=== PATIENT | male | born 1960 | race Asian ===

== ENCOUNTER 2016-09-15 10:00 | Emergency (ER) | payer OTHER ==
[~2016-09-15] VITALS: Ht 157.5 cm; Wt 59.9 kg
[2016-09-15] MEDS ORDERED: IV NORMAL SALINE 1000ML BAG 1,000 ML IV SCH (12:23)
[2016-09-15 12:40] LABS: BASO # 0.1 x10^3/uL (0.0-0.2); BASO % 1 % (0-3); EOS % 1 % (0-3); HEMATOCRIT 39.1 % (39.0-53.0); HEMOGLOBIN 13.4 g/dL (13.0-17.5); LYMPH # 1.3 x10^3/uL (1.0-4.8); LYMPH % 15 % (24-48); MEAN CORPUSCULAR HEMOGLOBIN 31 pg (25-35); MEAN CORPUSCULAR HGB CONC 34 g/dL (31-37); MEAN CORPUSCULAR VOLUME 90 fL (79-100); MONO % 8 % (0-9); NEUT % 75 % (31-73); PLATELET COUNT 183 x10^3/uL (140-400); RED BLOOD COUNT 4.32 x10^6/uL (4.30-5.70); RED CELL DISTRIBUTION WIDTH 13.3 % (11.5-14.5); WHITE BLOOD COUNT 8.5 x10^3/uL (4.0-11.0)
[2016-09-15 12:48] LABS: CALCIUM 8.8 mg/dL (8.5-10.1); CREATININE 1.1 mg/dL (0.7-1.3); GFR 69.8; POTASSIUM 3.1 mmol/L (3.5-5.1)
--- NOTE | 2016-09-15 12:48 | RAD ---
EXAM: Head and cervical spine CT without contrast. HISTORY: Syncope. TECHNIQUE: Computed tomographic images of the head and cervical spine were obtained without contrast. One or more of the following individualized dose reduction techniques were utilized for this examination: 1. Automated exposure control. 2. Adjustment of the mA and/or kV according to patient size. 3. Use of iterative reconstruction technique. COMPARISON: None. FINDINGS: Head: There is no acute or subacute hemorrhage. There is no mass effect or midline shift. There is no hydrocephalus. There is a nonspecific calcification within the right frontal lobe cortex, possibly due to the sequela of remote infection. The orbits are unremarkable. There is moderate paranasal sinus mucosal thickening. The mastoid air cells are clear. No calvarial lesion is seen. Cervical spine: There is mild cervical kyphosis. There is no significant listhesis. There is degenerative endplate remodeling with osteophytosis of the majority of the cervical vertebral levels. There is no fracture. At C2-C3, there is a disc bulge and endplate remodeling. There is minimal left foraminal stenosis. At C3-C4, there is a left paracentral disc osteophyte complex super posterior disc bulge and endplate remodeling. There is mild left foraminal stenosis. There is mild central canal stenosis. At C4-C5, there is a left paracentral to foraminal disc osteophyte complex and both on a disc bulge and endplate remodeling. There is left uncovertebral arthropathy. There is moderate left foraminal stenosis. There is mild central canal stenosis. At C5-C6, there is a left paracentral to foraminal disc osteophyte complex superimposed on a disc bulge and endplate remodeling. There is bilateral uncovertebral arthropathy. There is moderate bilateral foraminal stenosis. There is mild central canal stenosis. At C6-C7, there is a posterior central to right paracentral disc osteophyte complex are both in a disc bulge and endplate remodeling. There is a right uncovertebral arthropathy. There is moderate to severe right and moderate left foraminal stenosis. IMPRESSION: 1. No acute intracranial finding or evidence of acute cervical spine trauma. 2. Multilevel degenerative change throughout the cervical spine, resulting in stenosis as described above.
[2016-09-15 12:54] LABS: ALBUMIN 2.7 g/dL (3.4-5.0); ALBUMIN/GLOBULIN RATIO 0.6 (1.0-1.7); TOTAL BILIRUBIN 0.8 mg/dL (0.2-1.0); TOTAL PROTEIN 7.1 g/dL (6.4-8.2)
--- NOTE | 2016-09-15 13:13 | RAD ---
Exam: PA and lateral chest radiograph History: Fever for one week, syncope. Comparison: None. Findings: Cardiomediastinal silhouette is within normal limits for size. Bilateral lung pierson are free of focal infiltrate. No pleural effusion is seen. Aortic atherosclerosis is seen. Impression: No acute cardiopulmonary process.
--- NOTE | 2016-09-15 13:22 | PHYS DOC ---
Past Medical History Past Medical History: No Pertinent History Past Surgical History: Appendectomy Additional Information: nonsmoker Alcohol Use: Occasionally Drug Use: None Adult General Chief Complaint Chief Complaint: FEVER HPI HPI Patient is a 55 year old male who presents with subjective fever for one week. He reports diffuse myalgias without any other specific symptoms. Patient relates that he had a syncopal episode yesterday. He felt dizzy prior to syncope. He fell and hit his head on a carpeted floor. He denies any other injuries. He's had a headache since the fall but denies headache preceding the fall. He denies any chest pain or shortness of breath before or after the syncopal episode. He denies focal weakness or numbness with the headache. He denies cough, sore throat, nausea, vomiting, or diarrhea with the fever. He denies any significant past mental history. He did not take any medication at home for fever today prior to arrival. He did not receive an influenza vaccination this year. Patient relates that he saw his PCP 3 days ago for his illness. He was reportedly given an injection of Rocephin and prescribed a Z- Cruzito. He was initially feeling better but became worse today. He followed up with his PCP again today and was referred to the emergency department. His PCP is Dr. Harden. Review of Systems Review of Systems Constitutional: Reports subjective fever. Eyes: Denies change in visual acuity, redness, or eye pain. [] HENT: Denies nasal congestion or sore throat. [] Respiratory: Denies cough or shortness of breath. [] Cardiovascular: Denies chest pain, palpitations, or edema. [] GI: Denies abdominal pain, nausea, vomiting, bloody stools or diarrhea. [] : Denies dysuria or hematuria. [] Musculoskeletal: Denies back pain or joint pain. Reports diffuse myalgias. Integument: Denies rash or skin lesions. [] Neurologic: Denies focal weakness or sensory changes. Reports headache after syncopal episode. Reports dizziness prior to syncopal episode. Endocrine: Denies polyuria or polydipsia. [] Psych: Denies anxiety or depression. All systems reviewed and negative unless otherwise indicated in the HPI. Current Medications Current Medications Current Medications Medications (Trade) Dose Ordered Sig/Anjel Start Time Stop Time Status Last Admin Dose Admin Sodium Chloride (Iv Sodium Chloride 0.9% 1000ml Bag) 1,000 ml @ 1,000 mls/hr Q1H 09/15/16 12:23 09/15/16 16:28 DC 09/15/16 13:55 1,000 MLS/HR Physical Exam Physical Exam Constitutional: Well developed, well nourished, no acute distress, non-toxic appearance. [] HENT: Normocephalic, atraumatic, bilateral external ears normal, oropharynx moist, no oral exudates, nose normal. Bilateral TMs without erythema or bulging. There is no posterior pharyngeal erythema or tonsillar edema. Eyes: PERRLA, EOMI, conjunctiva normal, no discharge. [] Neck: Normal range of motion, no midline or paraspinal tenderness, supple, no stridor. There is no nuchal rigidity or meningeal signs. Cardiovascular: Heart rate regular rhythm, no murmur [] Lungs & Thorax: Bilateral breath sounds clear to auscultation without wheezes, rales, or rhonchi. Abdomen: Bowel sounds normal, soft, no tenderness, no masses, no pulsatile masses. [] Skin: Warm, dry, no erythema, no rash. [] Back: No tenderness, no CVA tenderness. [] Extremities: No tenderness, no cyanosis, no clubbing, ROM intact, no edema. Bilateral pulses equal. Neurologic: Alert and oriented X 3, normal motor function, normal sensory function, no focal deficits noted. CN II-XII grossly intact. Psychologic: Affect normal, judgement normal, mood normal. [] Current Patient Data Vital Signs Vital Signs Date Time Temp Pulse Resp B/P Pulse Ox O2 Delivery O2 Flow Rate FiO2 09/15/16 16:39 68 18 122/81 98 Room Air 09/15/16 12:11 98.0 98.0 Lab Values Laboratory Tests Test 09/15/16 12:28 09/15/16 14:30 09/15/16 14:40 White Blood Count 8.5x10^3/uL (4.0-11.0) Red Blood Count 4.32x10^6/uL (4.30-5.70) Hemoglobin 13.4g/dL (13.0-17.5) Hematocrit 39.1% (39.0-53.0) Mean Corpuscular Volume 90fL (79-100) Mean Corpuscular Hemoglobin 31pg (25-35) Mean Corpuscular Hemoglobin Concent 34g/dL (31-37) Red Cell Distribution Width 13.3% (11.5-14.5) Platelet Count 183x10^3/uL (140-400) Neutrophils (%) (Auto) 75% (31-73) H Lymphocytes (%) (Auto) 15% (24-48) L Monocytes (%) (Auto) 8% (0-9) Eosinophils (%) (Auto) 1% (0-3) Basophils (%) (Auto) 1% (0-3) Neutrophils # (Auto) 6.4x10^3uL (1.8-7.7) Lymphocytes # (Auto) 1.3x10^3/uL (1.0-4.8) Monocytes # (Auto) 0.7x10^3/uL (0.0-1.1) Eosinophils # (Auto) 0.1x10^3/uL (0.0-0.7) Basophils # (Auto) 0.1x10^3/uL (0.0-0.2) Sodium Level 136mmol/L (136-145) Potassium Level 3.1mmol/L (3.5-5.1) L Chloride Level 100mmol/L (98-107) Carbon Dioxide Level 28mmol/L (21-32) Anion Gap 8 (6-14) Blood Urea Nitrogen 18mg/dL (8-26) Creatinine 1.1mg/dL (0.7-1.3) Estimated GFR (Cockcroft-Gault) 69.8 BUN/Creatinine Ratio 16 (6-20) Glucose Level 106mg/dL (70-99) H Calcium Level 8.8mg/dL (8.5-10.1) Total Bilirubin 0.8mg/dL (0.2-1.0) Aspartate Amino Transferase (AST) 52U/L (15-37) H Alanine Aminotransferase (ALT) 83U/L (16-63) H Alkaline Phosphatase 207U/L (46-116) H Troponin I Quantitative < 0.017ng/mL (0.000-0.055) Total Protein 7.1g/dL (6.4-8.2) Albumin 2.7g/dL (3.4-5.0) L Albumin/Globulin Ratio 0.6 (1.0-1.7) L Influenza Type A Antigen Negative (NEGATIVE) Influenza Type B Antigen Negative (NEGATIVE) Urine Collection Type Unknown Urine Color Yellow Urine Clarity Clear Urine pH 7.0 Urine Specific Richards 1.020 Urine Protein Negativemg/dL (NEG-TRACE) Urine Glucose (UA) Negativemg/dL (NEG) Urine Ketones (Stick) 15mg/dL (NEG) Urine Blood Small (NEG) Urine Nitrite Negative (NEG) Urine Bilirubin Negative (NEG) Urine Urobilinogen Dipstick 1.0mg/dL (0.2 mg/dL) Urine Leukocyte Esterase Negative (NEG) Urine RBC 3-5/HPF (0-2) Urine WBC 0/HPF (0-4) Urine Squamous Epithelial Cells Occ/LPF Urine Bacteria 0/HPF (0-FEW) Urine Mucus Mod/LPF Laboratory Tests 09/15/16 12:28 Laboratory Tests 09/15/16 12:28 EKG EKG EKG at 1304. Heart rate 63 bpm. Sinus rhythm with a leftward axis and nonspecific intraventricular block. There are no acute ischemic changes or STEMI, as interpreted by Dr. Clark. Radiology/Procedures Radiology/Procedures REASON: syncope, hit head, headache PROCEDURE: HEAD AND CERVICAL SPINE WO EXAM: Head and cervical spine CT without contrast. HISTORY: Syncope. TECHNIQUE: Computed tomographic images of the head and cervical spine were obtained without contrast. One or more of the following individualized dose reduction techniques were utilized for this examination: 1. Automated exposure control. 2. Adjustment of the mA and/or kV according to patient size. 3. Use of iterative reconstruction technique. COMPARISON: None. FINDINGS: Head: There is no acute or subacute hemorrhage. There is no mass effect or midline shift. There is no hydrocephalus. There is a nonspecific calcification within the right frontal lobe cortex, possibly due to the sequela of remote infection. The orbits are unremarkable. There is moderate paranasal sinus mucosal thickening. The mastoid air cells are clear. No calvarial lesion is seen. Cervical spine: There is mild cervical kyphosis. There is no significant listhesis. There is degenerative endplate remodeling with osteophytosis of the majority of the cervical vertebral levels. There is no fracture. At C2-C3, there is a disc bulge and endplate remodeling. There is minimal left foraminal stenosis. At C3-C4, there is a left paracentral disc osteophyte complex super posterior disc bulge and endplate remodeling. There is mild left foraminal stenosis. There is mild central canal stenosis. At C4-C5, there is a left paracentral to foraminal disc osteophyte complex and both on a disc bulge and endplate remodeling. There is left uncovertebral arthropathy. There is moderate left foraminal stenosis. There is mild central canal stenosis. At C5-C6, there is a left paracentral to foraminal disc osteophyte complex superimposed on a disc bulge and endplate remodeling. There is bilateral uncovertebral arthropathy. There is moderate bilateral foraminal stenosis. There is mild central canal stenosis. At C6-C7, there is a posterior central to right paracentral disc osteophyte complex are both in a disc bulge and endplate remodeling. There is a right uncovertebral arthropathy. There is moderate to severe right and moderate left foraminal stenosis. IMPRESSION: 1. No acute intracranial finding or evidence of acute cervical spine trauma. 2. Multilevel degenerative change throughout the cervical spine, resulting in stenosis as described above. REASON: fever, syncope PROCEDURE: CHEST PA & LATERAL Exam: PA and lateral chest radiograph History: Fever for one week, syncope. Comparison: None. Findings: Cardiomediastinal silhouette is within normal limits for size. Bilateral lung pierson are free of focal infiltrate. No pleural effusion is seen. Aortic atherosclerosis is seen. Impression: No acute cardiopulmonary process. Course & Med Decision Making Course & Med Decision Making Pertinent Labs and Imaging studies reviewed. (See chart for details) The patient is a 55-year-old male who presents with subjective fever and myalgias for one week with a syncopal episode yesterday. On exam, lungs are clear to auscultation, abdomen is soft and nontender, oropharynx is unremarkable. There are no focal neurologic deficits. EKG is nonischemic. CT of the head and C-spine is unremarkable for acute findings. Chest x-ray does not show any focal infiltrates to suggest pneumonia. Urine is negative for infection. Influenza swab is negative. There are no other significant laboratory abnormalities. Patient is already on a Z-Cruzito prescribed by his PCP. He is instructed to complete this medication. He is encouraged to drink plenty of fluids and get plenty of rest. He should follow with his PCP in 2-3 days. Return precautions were discussed. He verbalizes understanding and agrees with plan. Dragon Disclaimer Dragon Disclaimer This electronic medical record was generated, in whole or in part, using a voice recognition dictation system. Departure Departure Impression: Primary Impression: Viral illness Additional Impression: Syncope Disposition: 01 HOME, SELF-CARE Condition: STABLE Referrals: KAREN HARDEN (PCP) Patient Instructions: Syncope, [id number], Viral Infections, [id number] Additional Instructions: Your symptoms are likely due to a viral illness. There were no concerning findings on your labs or imaging studies performed today. Please continue taking the medication prescribed by your doctor as directed. Please drink lots of liquids and get plenty of rest. Please follow up with your doctor in 2-3 days, sooner if concerns. Return to the emergency department if you have any new or concerning symptoms. Problem Qualifiers Additional Impression: Syncope Syncope type: vasovagal syncope Qualified Code: R55 - Syncope and collapse RACHANA UREÑA Sep 15, 2016 13:22
[2016-09-15 15:22] LABS: OBC FLU VALID
[2016-09-15 15:34] LABS: BILIRUBIN,URINE NEGATIVE (NEG); GLUCOSE,URINE NEGATIVE (NEG); NITRITE,URINE NEGATIVE (NEG); PROTEIN,URINE NEGATIVE (NEG-TRACE)
[2016-09-15 16:06] LABS: BACTERIA,URINE 0 /HPF (0-FEW); SQUAMOUS EPITHELIAL CELL,UR OCC /LPF; WBC,URINE 0 /HPF (0-4)
[2016-09-15 16:39] VITALS: BP 122/81
--- NOTE | 2016-09-15 20:20 | EKG ---
[facility] [address] [place] [address] Test Date: 2016-09-15 Test Time: 13:04:30 Pat Name: SALAZAR VANCE Department: Room: Gender: M Vice President Of Manufacturing: : 1960 Requested By: RACHANA UREÑA Order Number: [id number] Reading MD: Fab Beasley Measurements Intervals Finley Rate: 63 P: 31 SD: 148 QRS: 0 QRSD: 130 T: -3 QT: 456 QTc: 470 Interpretive Statements SINUS RHYTHM SEPTAL INFARCT RBBB Electronically Signed On 09-16-2016 15:40:27 GEOSPATIAL INTELLIGENCE ANALYST by Fab Beasley
== END 2016-09-15 16:45 | disposition home or self-care (01) ==
LOC: ER 10:00
DX: B34.9 Viral infection, unspecified (principal); R55 Syncope and collapse; W01.198A Fall on same level from slipping, tripping and stumbling with subsequent striking against other object, initial encounter; Y93.89 Activity, other specified; Y92.89 Other specified places as the place of occurrence of the external cause; Y99.8 Other external cause status
CPT/HCPCS: 36415; 70450; 71020; 72125; 80053; 81001; 84484; 85027; 87804; 93005; 96360; 99285; J7030